=== PATIENT | female | born 1965 | race Hispanic/Latino ===

== ENCOUNTER 2022-06-18 15:15 | Emergency (ER) | payer OTHER ==
[2022-06-18] MEDS ORDERED: CEFAZOLIN SODIUM 1 GM/VIAL ONE (15:47)
[2022-06-18] MEDS ORDERED: LIDOCAINE 1% 20 ML MDV ONE (15:49)
[2022-06-18] MEDS ORDERED: DIAZEPAM 5 MG TABLET ONE (17:07)
[2022-06-18] MEDS ORDERED: MORPHINE 4 MG/ML SYR ONE (17:08)
--- NOTE | 2022-06-18 17:47 | RAD REPORT ---
EXAM DESCRIPTION: RAD - Tib Fib Left - 06/18/2022 5:43 pm CLINICAL HISTORY: dog bite COMPARISON: No comparisons FINDINGS: No fracture or radiopaque foreign body seen. Lateral fibular sideplate is present.
--- NOTE | 2022-06-18 17:48 | RAD REPORT ---
EXAM DESCRIPTION: RAD - Ankle Right 3 View - 06/18/2022 5:43 pm CLINICAL HISTORY: dog bite COMPARISON: No comparisons FINDINGS: No fracture, dislocation or radiopaque foreign body.
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
[2022-06-18] MEDS ORDERED: TDAP (DIPHTH,PERTUSS(ACELL),TET VAC) 0.5 ML VIAL IMVAC ONE (18:16)
[2022-06-18 19:09] VITALS: TEMP 98.6
[2022-06-18 19:10] VITALS: BP 144/84; O2SAT 93
== END 2022-06-18 18:34 | disposition home or self-care (01) ==
LOC: ER 15:15
PROC: 0HQMXZZ Repair Right Foot Skin, External Approach (ICD-10-PCS; principal; 2022-06-18)
PROC: 0HQLXZZ Repair Left Lower Leg Skin, External Approach (ICD-10-PCS; 2022-06-18)
DX: S91.011A Laceration without foreign body, right ankle, initial encounter (principal); S81.812A Laceration without foreign body, left lower leg, initial encounter; W54.0XXA Bitten by dog, initial encounter; Z23 Encounter for immunization; Z88.0 Allergy status to penicillin; Z88.5 Allergy status to narcotic agent
CPT/HCPCS: 73590; 73610; 90471; 96372; 99284; 12005; J2001; J0690

== ENCOUNTER 2022-06-19 14:18 | Emergency (ER) | payer OTHER ==
--- NOTE | 2022-06-19 15:07 | EDPHYS ---
Physician Documentation [facility] Name: Anyg Pugh Age: 56 yrs Sex: Female : 1965 Arrival Date: 06/19/2022 Time: 14:22 Bed 9 Private MD: ED Physician Melecio Moore HPI: 06/19 15:30 This 56 yrs old Female presents to ER via Ambulatory with complaints of Suture snw Recheck. 15:30 The affected area is on the right lateral malleolus and right Achilles. Previous snw treatment: The patient was initially treated yesterday, Treatment type: The patient's original treatment included irrigation, oral antibiotics, sutures, Outpatient prescription(s): The patient was given prescription(s) for Bactrim, clindamycin. Progress: The patient reports decreased some missing sutures. The patient has not experienced similar symptoms in the past. as noted. Historical: - Allergies: 14:55 PENICILLINS; ss 14:55 Vicodin; ss - PMHx: 14:55 Arthritis; Bipolar disorder; Fibromyalgia; Hypercholesterolemia; ss ROS: 15:27 Constitutional: Negative for fever, chills, and weight loss. snw 15:27 Skin: Positive for would like heel wound re-evaluated as many sutures placed yesterday are now missing. Exam: 15:17 Constitutional: This is a well developed, well nourished patient who is awake, alert, snw and in no acute distress. Head/Face: Normocephalic, atraumatic. Eyes: Pupils equal round and reactive to light, extra-ocular motions intact. Lids and lashes normal. Conjunctiva and sclera are non-icteric and not injected. Cornea within normal limits. Periorbital areas with no swelling, redness, or edema. Neck: Trachea midline, no thyromegaly or masses palpated, and no cervical lymphadenopathy. Supple, full range of motion without nuchal rigidity, or vertebral point tenderness. No Meningismus. Chest/axilla: Normal chest wall appearance and motion. Nontender with no deformity. No lesions are appreciated. Cardiovascular: Regular rate and rhythm with a normal S1 and S2. No gallops, murmurs, or rubs. Normal PMI, no JVD. No pulse deficits. Respiratory: Lungs have equal breath sounds bilaterally, clear to auscultation and percussion. No rales, rhonchi or wheezes noted. No increased work of breathing, no retractions or nasal flaring. Abdomen/GI: Soft, non-tender, with normal bowel sounds. No distension or tympany. No guarding or rebound. No evidence of tenderness throughout. 15:17 Skin: Appearance: normal except for affected area, injury, laceration(s), the wound is approximately 4 cm(s), with a depth of 3 cm(s), of the right Achilles and right lateral malleolus, that can be described as pt seen yest for dogbite. Pt on abx, states many of the sutures fell out. Area closed but on mobile area. Vital Signs: 14:53 BP 128 / 87; Pulse 82; Resp 15; Temp 98.6(TE); Pulse Ox 99% on R/A; Weight 72.12 kg; ss Pain 5/10; MDM: 14:53 Patient medically screened. snw 15:29 Differential diagnosis: cellulitis, wound dehiscence. Data reviewed: vital signs, snw nurses notes. Counseling: I had a detailed discussion with the patient and/or guardian regarding: the historical points, exam findings, and any diagnostic results supporting the discharge/admit diagnosis, the need for outpatient follow up, to return to the emergency department if symptoms worsen or persist or if there are any questions or concerns that arise at home. Special discussion: Based on the history and exam findings, there is no indication for further emergent testing or inpatient evaluation. I discussed with the patient/guardian the need to see the primary care provider for further evaluation of the symptoms. 06/19 15:04 Order name: Wound Care; Complete Time: 16:09 snw 06/19 16:10 Order name: Post-op shoe; Complete Time: 16:12 iw Administered Medications: No medications were administered Disposition: 19:20 Co-signature as Attending Physician, Melecio Moore DO I was immediately available on-site ms3 in the Emergency Department for consultation in the care of the patient. Disposition Summary: 06/19/22 15:07 Discharge Ordered Location: Home snw Condition: Stable snw Diagnosis - Encounter for change or removal of nonsurgical wound dressing snw Followup: snw - With: Emergency Department - When: As needed - Reason: Worsening of condition Followup: snw - With: Private Physician - When: 10 - 14 days - Reason: Recheck today's complaints, Continuance of care, Re-evaluation by your physician Discharge Instructions: - Discharge Summary Sheet snw - How to Change Your Wound Dressing snw - Nonsutured Laceration Care snw - Walking Boot, Adult snw Forms: - Medication Reconciliation Form snw - Thank You Letter snw - Antibiotic Education snw - Prescription Opioid Use snw Signatures: Krista Sorenson, STEM SIZER-C STEM SIZER-Csnw Lyndsey Ca RN RN iw Carmelina Russell RN RN ss Melecio Moore DO DO ms3 Corrections: (The following items were deleted from the chart) 16:09 15:04 Walking boot ordered. snw iw 17:00 16:16 Splint - Ankle: Orthoglass: Posterior ordered. snw snw 17:00 16:16 Crutches ordered. snw snw
--- NOTE | 2022-06-19 15:07 | ER ---
Nurse's Notes [facility] Name: Angy Pugh Age: 56 yrs Sex: Female : 1965 Arrival Date: 06/19/2022 Time: 14:22 Bed 9 Private MD: Diagnosis: Encounter for change or removal of nonsurgical wound dressing Presentation: 06/19 14:53 Chief complaint: Patient states: Had sutures placed last night to R foot and states ss that they came out sometime during the night. Coronavirus screen: Client denies travel out of the [place] in the last 14 days. Ebola Screen: Patient denies exposure to infectious person. Patient denies travel to an Ebola-affected area in the 21 days before illness onset. Initial Sepsis Screen: Does the patient meet any 2 criteria? No. Patient's initial sepsis screen is negative. Does the patient have a suspected source of infection? No. Patient's initial sepsis screen is negative. Risk Assessment: Do you want to hurt yourself or someone else? Patient reports no desire to harm self or others. Onset of symptoms was June 18, 2022. 14:53 Method Of Arrival: Ambulatory ss 14:53 Acuity: RELL 4 ss Historical: - Allergies: 14:55 PENICILLINS; ss 14:55 Vicodin; ss - PMHx: 14:55 Arthritis; Bipolar disorder; Fibromyalgia; Hypercholesterolemia; ss Vital Signs: 14:53 BP 128 / 87; Pulse 82; Resp 15; Temp 98.6(TE); Pulse Ox 99% on R/A; Weight 72.12 kg; ss Pain 5/10; ED Course: 14:22 Patient arrived in ED. rg4 14:34 Krista Sorenson FNP-C is PHCP. snw 14:34 Melecio Moore DO is Attending Physician. snw 14:54 Triage completed. ss 14:55 Arm band placed on right wrist. ss 15:23 Lyndsey Ca, RN is Primary Nurse. iw Administered Medications: No medications were administered Outcome: 15:07 Discharge ordered by MD. snw 16:58 Patient left the ED. zm 17:00 Patient left the ED. iw Signatures: Krista Sorenson FNP-C BELL CLEANER-Csnw Lyndsey Ca RN RN iw Carmelina Russell RN RN Johanna Lazo rg4 Shirley Arevalo zm
[2022-06-19 17:48] VITALS: BP 128/87; TEMP 98.6; O2SAT 99
== END 2022-06-19 17:00 | disposition home or self-care (01) ==
LOC: ER 14:18
DX: Z48.01 Encounter for change or removal of surgical wound dressing (principal); Z48.00 Encounter for change or removal of nonsurgical wound dressing
CPT/HCPCS: 99281